=== PATIENT | male | born 1950 | race African-American/Black ===

== ENCOUNTER 2016-12-05 09:41 | Emergency (ER) | payer MEDICAID ==
[2016-12-05 09:56] VITALS: BP 185/111
[2016-12-05] MEDS ORDERED: NS 0.9% 500 ML BAG* 500 ML IV ONE (10:25)
--- NOTE | 2016-12-05 11:05 | UC ---
Anurag Harris Benjamin, scribed for Tete Saravia MD on 12/05/16 at 1016 . Abdominal Pain Male HPI - HPI Summary HPI Summary: 66yo male c/o LLE pain for couple of days that has been getting worse. Pt reports having pain when pt doesnt eat on time. Pt also reports vomiting sometimes. Pt is visiting from [place]. Denies blood or black stool. Denies urinary symptoms but daughter reports that he may be having urinary difficulty, but not divulging. No fever / chills. Last po this am prior to arrival regular tea and crackers. Does drink alcohol, but daughter unclear how much, pt denies very much. Mr. Lujan does report hx HTN, but did not bring BP meds with him to [place] ( arrived from [place] mid-October 2016), and is not sure what he is prescribed for BP. - History of Current Complaint Chief Complaint: UCAbdominalPain Stated Complaint: PAIN ON SIDE Time Seen by Provider: 12/05/16 09:43 Hx Obtained From: Patient, Family/Jowl Trimmer - daughter Onset/Duration: Gradual Onset, Lasting Days, Still Present Severity Initially: Moderate Severity Currently: Moderate Pain Intensity: 6 Pain Scale Used: 0-10 Numeric Location: Discrete At: LLQ Radiates: No Aggravating Factor(s):: Nothing - missing food Alleviating Factor(s): Nothing Associated Signs And Symptoms: Positive: Vomiting - Allergies/Home Medications Allergies/Adverse Reactions: Allergies Allergy/AdvReac Type Severity Reaction Status Date / Time No Known Allergies Allergy Verified 12/05/16 09:50 Home Medications: Home Medications NK [No Home Medications Reported] 12/05/16 [History Confirmed 12/05/16] PMH/Surg Hx/FS Hx/Imm Hx Previously Healthy: No - htn. see hpi. Denies sign pmh. Pt is a poor self- historian. Cardiovascular History: Hypertension - Surgical History Surgical History: None - Family History Known Family History: Positive: Hypertension - Social History Occupation: Retired Lives: With Family Alcohol Use: Weekly Substance Use Type: None Smoking Status (MU): Never Smoked Tobacco Review of Systems Constitutional: Other - See HPI Skin: Negative Eyes: Negative ENT: Negative Respiratory: Negative Cardiovascular: Negative Gastrointestinal: Other - see hpi Genitourinary: Other - see hpi Motor: Negative Neurovascular: Negative Musculoskeletal: Negative Neurological: Negative Psychological: Negative All Other Systems Reviewed And Are Negative: Yes Physical Exam Triage Information Reviewed: Yes Appearance: Thin, Other: - sitting up, prefers to lie down. Stoic, but appears uncomfortable with physical examination. Vital Signs: Initial Vital Signs Temp 99.8 F 12/05/16 09:51 Pulse 87 12/05/16 09:51 Resp 16 12/05/16 09:51 BP 185/111 12/05/16 09:51 Pulse Ox 100 12/05/16 09:51 Vital Signs Reviewed: Yes Eye Exam: Normal - grossly normal. + arcus senilis. ENT Exam: Normal, Other - + etoh on breath Neck exam: Normal Neck: Positive: Supple - for age, + evidence djd Respiratory Exam: Normal Respiratory: Positive: Chest non-tender, Lungs clear, Normal breath sounds, No respiratory distress Cardiovascular Exam: Normal Cardiovascular: Positive: RRR, No Murmur - no murmur noted with exam, Pulses Normal, Brisk Capillary Refill Abdominal Exam: Other - + bs, somewhat hyperactive. Abd soft, nondistended. + tender mid-left abdomen, unclear if mass. No del CVAT. Bowel Sounds: Positive: Present Musculoskeletal: Positive: Strength Intact, Other: - very thin Neurological: Positive: Muscle Tone Normal - thin Psychological: Positive: Age Appropriate Behavior Skin Exam: Normal - nondiaphoretic, turger ok. Skin: Negative: rashes Abd Pain Male Course/Dx - Course Course Of Treatment: Reviewed pts medication and allergy lists. Blood pressure noted. Recommended pt and family for transfer to ED. EMS offered, and pt and family agree. ++ acute abd pain, in the setting of very high uncontrolled Blood pressure. Discussed with Delaney Phillips ([facility]). Pt and daughter given the opportunity to ask several insightful questions, to which I answered to the best of my ability. FS glucose 83mg/dl. note - urine dip initially ordered but unable to urinate here. As such, urine testing may be performed in ED. - Differential Dx/Clinical Impression Provider Diagnoses: Acute abd pain. HTN uncontrolled Discharge - Discharge Plan Condition: Guarded Disposition: [facility]MITTED TO [facility] Additional Instructions: Please follow up with your primary care provider in 1-2 weeks. Seek medical attention for worse or new problems in the meantime. The documentation as recorded by the Anurag elam Benjamin accurately reflects the service I personally performed and the decisions made by me, Tete Saravia MD.
== END 2016-12-05 10:30 | disposition short-term general hospital (02) ==
LOC: UCEAST 09:41
DX: R10.32 Left lower quadrant pain (principal); I10 Essential (primary) hypertension
CPT/HCPCS: 99213; G0463

== ENCOUNTER 2016-12-05 11:00 | Emergency (ER) | payer MEDICAID ==
[2016-12-05] MEDS ORDERED: NS 0.9% 1000 ML* 1,000 ML IV ONE (12:05)
[2016-12-05 13:12] LABS: Hematocrit 41 % (42-52); Hemoglobin 13.8 g/dl (14.0-18.0); Mean Corpuscular HGB Conc 34 g/dl (31-36); Mean Corpuscular Hemoglobin 30 pg (27-31); Mean Corpuscular Volume 88 fL (80-94); Mean Platelet Volume 9 um3 (7.4-10.4); Red Blood Count 4.66 10^6/ul (4.0-5.4); Red Cell Distribution Width 14 % (10.5-15); White Blood Count 7.9 10^3/ul (3.5-10.8)
[2016-12-05 13:30] LABS: Albumin 4.1 g/dL (3.2-5.2); BUN/Creatinine Ratio 15.9 (8-20); C Reactive Protein 1.63 mg/L (< 5.00); Calcium 9.6 mg/dL (8.6-10.3); EGFR Non-African American 65.3 (>60); Globulin 3.3 g/dL (2-4); Potassium 3.9 mmol/L (3.5-5.0); Total Bilirubin 0.7 mg/dL (0.2-1.0); Total Protein 7.4 g/dL (6.4-8.9)
[2016-12-05] MEDS ORDERED: Iohexol 300* (CONTRAST) 10 ML SDV IV ONE (14:12)
--- NOTE | 2016-12-05 15:24 | RAD ---
INDICATION: Left lower quadrant pain COMPARISON: None TECHNIQUE: Axial source images were obtained from the hemidiaphragms to the symphysis pubis following administration of oral and intravenous contrast. 91 mL Omnipaque 300 was utilized. Coronal and sagittal reconstructed images were acquired. Lung bases: The lung bases are clear. Liver: The liver is normal in size. There are no masses. There is no ductal dilatation. Gallbladder: There are no calcified gallstones. There is no evidence of wall thickening or pericholecystic fluid. Spleen: The spleen is diminutive in size. There are no masses. Pancreas: There is no focal pancreatic mass or ductal dilatation. Adrenal glands: There is no evidence of adrenal mass. Kidneys: The kidneys are normal in size and position. There are prompt nephrograms and there is prompt excretion bilaterally. There are no renal parenchymal masses. There is no evidence of nephrolithiasis. Adenopathy: There is no evidence of adenopathy by size criteria. Fluid collections: There are no free or localized fluid collections. Vessels:There are no significant atherosclerotic changes involving the aorta. There is no focal aneurysm. The iliac vessels are normal in caliber. The IVC appears normal. GI tract: There are no acute CT bowel findings. There is no obstruction. The stomach and small bowel appear to include the terminal ileum appear normal. The ileocecal valve and appendix appear normal. There is apparent mucosal thickening of the sigmoid colon. In part this may be accentuated by lack of distention. Pelvic organs: The prostate and seminal vesicles appear normal Bladder: There are no bladder masses. Abdominal and pelvic soft tissues: The extraperitoneal abdominal and pelvic soft tissues appear normal.. Osseous structures: There are multiple subtle areas of rarefaction involving the spine, bony pelvis, and proximal long bones. Consider infiltrative process to include multiple myeloma or other causes of lytic lesions. Other: None IMPRESSION: 1. NO SPECIFIC MUCOSAL THICKENING OF THE SIGMOID COLON. CONSIDER ENDOSCOPY FOR FURTHER EVALUATION. 2. THE OSSEOUS STRUCTURES APPEAR NORMAL. CONSIDER MYELOMATOUS INVOLVEMENT OR OTHER CAUSE OF A PRIMARILY LYTIC BONE PROCESS.
[2016-12-05] MEDS ORDERED: Amoxicillin/Clavulanate TAB* 875 MG PO ONE (16:34)
--- NOTE | 2016-12-05 16:39 | ED ---
Gunnar Harris Rebecca, scribed for Fco Rojas MD on 12/05/16 at 1146 . Abdominal Pain/Male - HPI Summary HPI Summary: Pt is a 66 y/o M accompanied by his [id number] who presents to ED c/o LLQ abdominal pain. Sx began slightly more than 1 week ago. Pain is currently moderate, ranked 4/10. Sx aggravated and alleviated by nothing. [id number] reports melena. Denies fever, chills, constipation, V/D and blood in stool. Pt reports prior similar episodes of pain when he does not eat. SHx daily EtOH consumption with the daughter stating he drinks "whatever he can get." Pt recently moved here from [place] (mid-October) where he will be returning in a month. - History of Current Complaint Chief Complaint: EDAbdPain Stated Complaint: ABD PAIN Time Seen by Provider: 12/05/16 11:30 Hx Obtained From: Patient Onset/Duration: Lasting Weeks - Just over 1 week, Still Present Severity Currently: Moderate Pain Intensity: 4 Pain Scale Used: 0-10 Numeric Location: Discrete At: LLQ Aggravating Factor(s): Nothing Alleviating Factor(s): Nothing Associated Signs And Symptoms: Positive: Other - Melena. Negative: Fever, Constipation, Blood in Stool, Vomiting, Diarrhea - Allergies/Home Medications Allergies/Adverse Reactions: Allergies Allergy/AdvReac Type Severity Reaction Status Date / Time No Known Allergies Allergy Verified 12/05/16 09:50 PMH/Surg Hx/FS Hx/Imm Hx Endocrine/Hematology History: Denies: Hx Diabetes Cardiovascular History: Reports: Hx Hypertension Denies: Hx Coronary Artery Disease Infectious Disease History: No Infectious Disease History: Denies: Traveled Outside the [place] in Last 30 Days - Family History Known Family History: Positive: Hypertension - Social History Alcohol Use: Daily Alcohol Amount: Patient states "weekly", daughter says daily Substance Use Type: Reports: None Smoking Status (MU): Never Smoked Tobacco Review of Systems Negative: Fever, Chills Positive: Abdominal Pain - LLQ pain, Other - NEGATIVE: constipation. Negative: Vomiting, Diarrhea Positive: other - C/o Melena; NEGATIVE: blood in stool All Other Systems Reviewed And Are Negative: Yes Physical Exam Triage Information Reviewed: Yes Vital Signs On Initial Exam: Initial Vitals Temp Pulse Resp BP Pulse Ox 99.2 F 84 15 172/97 98 12/05/16 11:02 12/05/16 11:02 12/05/16 11:02 12/05/16 11:02 12/05/16 11:02 Vital Signs Reviewed: Yes Appearance: Positive: Well-Appearing, No Pain Distress Skin: Positive: Skin Color Reflects Adequate Perfusion Head/Face: Positive: Normal Head/Face Inspection Eyes: Positive: EOMI ENT: Positive: Normal ENT inspection Neck: Positive: Nontender Respiratory/Lung Sounds: Positive: Clear to Auscultation, Breath Sounds Present Cardiovascular: Positive: RRR. Negative: Murmur Abdomen Description: Positive: Other: - tender in the LLQ Musculoskeletal: Positive: Strength/ROM Intact Neurological: Positive: Sensory/Motor Intact, Alert, Oriented to Person Place, Time, CN Intact II-III Psychiatric: Positive: Normal - Dung Coma Scale Best Eye Response: 4 - Spontaneous Best Motor Response: 6 - Obeys Commands Best Verbal Response: 5 - Oriented Coma Scale Total: 15 Diagnostics - Vital Signs Vital Signs Temp Pulse Resp BP Pulse Ox 12/05/16 11:04 99.2 F 77 12 172/97 98 12/05/16 11:02 99.2 F 84 15 172/97 98 - Laboratory Result Diagrams: 12/05/16 12:58 12/05/16 12:58 Lab Statement: Any lab studies that have been ordered have been reviewed, and results considered in the medical decision making process. - CT CT Abd/Pel CT Interpretation Completed By: Radiologist - 1. NO SPECIFIC MUCOSAL THICKENING OF THE SIGMOID COLON. CONSIDER ENDOSCOPY FOR FURTHER EVALUATION. 2. THE OSSEOUS STRUCTURES APPEAR NORMAL. CONSIDER MYELOMATOUS INVOLVEMENT OR OTHER CAUSE OF A PRIMARILY LYTIC BONE PROCESS. - EKG 1214 Cardiac Rate: NL - bpm EKG Rhythm: Sinus Rhythm EKG Interpretation: No STEMI, LVH Re-Evaluation - Re-Evaluation First Eval Re-Evaluation Time: 15:50 Change: Improved Comment: Pt is comfortable. Discussed CT results with the pt. Abdominal Pain Fem Course/Dx - Course Course Of Treatment: 66 yr old male with pain, and some tenderness that correlates with the CT finding on his sigmoid area. Will cover with augmentin. Dr Guerrier, GI club concierge, contacted on this patient and he states he has no availability in his office for follow up for GI. He recommended referral to primary care which i have done. He reviewed the labs and CT findings and had no further recommendations on the patient. Will treat as though this is diverticulitis and refer to primary care and GI for follow up. Assessment/Plan: Elevated BP noted and advised to f/u with PCP. - Diagnoses Provider Diagnoses: Diverticulitis, Sigmoid thickening - Provider Notifications Discussed Care Of Patient With: Rob Guerrier Time Discussed With Above Provider: 16:28 Instructed by Provider To: Other - Advised that he be referred to a PCP. Discharge - Discharge Plan Condition: Good Disposition: HOME Prescriptions: Amoxicillin/Clavulanate TAB* [Augmentin TAB 875*] 875 mg PO BID #20 tab Patient Education Materials: Diverticulitis (ED), Diverticulitis Diet (ED), Hypertension (ED) Referrals: No Primary Care Phys,NOPCP [Primary Care Provider] - [facility] [[facility]] Mike Shay MD [Medical Doctor] - The documentation as recorded by the Gunnar elam Rebecca accurately reflects the service I personally performed and the decisions made by me, Fco Rojas MD.
[2016-12-05 18:19] VITALS: BP 166/91
--- NOTE | 2016-12-06 00:14 | CONS ---
GASTROENTEROLOGY CONSULT: DATE: 12/05/16 - EMERGENCY EPT CONSULTING PHYSICIAN: Dr. Fco Rojas REASON FOR CONSULTATION: Left lower quadrant pain intermittently with CT scan showing possible sigmoid colon thickening, but also lytic disease of the bone. HISTORY: This 66-year-old man from [facility], came here on 10/27/16 to visit his son, who lives here in [place]. He says he has been experiencing a pain intermittently if he does not eat correctly. He focuses on the fact that a delayed or skipped breakfast or lunch will result in his feeling a pain, though if he eats a full meal on a regular basis, he would not have it. He says there is no vomiting or fever. He may not have the pain at all for days or even weeks if he is eating correctly. It was present when he was in [place]. He saw a physician there and was given an unknown pill in addition to be advised to eat regularly. He says his bowel pattern is regular and without blood. Here in the emergency room, digital rectal was heme-negative. He denies any past history of surgery. In the emergency room, CT scan questioned thickening of the sigmoid colon. Lytic lesions of the pelvis, spine, and proximal femurs were noted. PAST MEDICAL HISTORY: Hypertension - he says commented on by [facility] physician , though he has not been treated. SOCIAL HISTORY: He is from [facility], and says he works in [employer] service. He plans to return there in a month. REVIEW OF SYSTEMS: No history of cardiac or pulmonary disease. He denies any liver problems. He says he had a little bit of his distress this morning, but it is now gone and one can palpate that area at will. He says he is quite active and walking 2 to 3 miles a day. PHYSICAL EXAMINATION: He is a tall, black male, in no overt distress, smiling and enthusiastically giving history. He denies any pain at the moment. He is afebrile. The pulse is in the high 70s. Blood pressure 170/87. HEENT Exam: Shows muddy sclerae. Dentition is poor. He has no adenopathy. Lungs: Clear. Heart: Sounds are regular. Abdomen: Symmetric with normal bowel sounds, soft , and there is no tenderness at this time. Palpation of pelvis is not painful. Perianal inspection shows considerable thin soiling of the anoderm. Digital rectal by the ER physician had been heme-negative. The prostate is symmetric and low profile. No masses felt. Extremities: Show no edema. Neurologic: Grossly nonfocal with normal cranial nerves. Moves all 4 extremities with coordination. Gait was not tested. LABS: CBC: Hemoglobin 13.8, hematocrit 41, MCV 88, platelets 208. LFTs normal. Albumin 4.1. Creatinine 1.13, BUN 18. CRP 1.63. Radiology reviewed - in the Radiology Department, no stranding around the colon and no mass. IMPRESSION: This is a 66-year-old man with somewhat inconsistent history of abdominal distress, it seems more of a related to eating and avoiding hunger than anything related to his bowels. A focus on the left lower quadrant though it brings up question of constipation, which is not present on exam or by history or diverticulosis, which also has no evidence to support it. 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 Whether that he would be pursued here in [place] or back at his home with his usual practitioners is not possible to be certain of today. [id number]/[facility] #: [id number] [facility]ITALJuan
== END 2016-12-05 18:20 | disposition home or self-care (01) ==
LOC: ED 11:00
DX: R10.32 Left lower quadrant pain (principal); K57.92 Diverticulitis of intestine, part unspecified, without perforation or abscess without bleeding; K63.89 Other specified diseases of intestine
CPT/HCPCS: 36415; 74177; 80053; 82272; 83605; 83690; 84484; 85025; 85610; 86140; 86850; 86900; 86901; 93005; 99283; A9270-GY; Q9967